=== PATIENT | male | born 1975 | race Caucasian/White ===

== ENCOUNTER → 2016-10-20 | Outpatient (REF) | payer OTHER ==
[2016-10-20 17:50] LABS: MEAN CORPUSCULAR HEMOGLOBIN 32.4 pg (27.0-33.0); MEAN CORPUSCULAR HGB CONC 33.6 g/dl (32.0-36.5); MEAN CORPUSCULAR VOLUME 96.3 fl (80.0-96.0); RED CELL DISTRIBUTION WIDTH 12.9 % (11.5-14.5); WHITE BLOOD COUNT 4.2 K/mm3 (4.0-10.0)
[2016-10-20 18:26] LABS: ALKALINE PHOSPHATASE 44 U/L (45-117); ALT/SGPT 47 U/L (12-78); ANION GAP 5 MEQ/L (8-16); AST/SGOT 24 U/L (15-37); BILIRUBIN,TOTAL 0.5 MG/DL (0.2-1.0); BLOOD UREA NITROGEN 29 MG/DL (7-18); CALCIUM LEVEL 9.3 MG/DL (8.5-10.1); CARBON DIOXIDE LEVEL 27 MEQ/L (21-32); CHLORIDE LEVEL 106 MEQ/L (98-107); CREATININE FOR GFR 1.26 MG/DL (0.70-1.30); GLOMERULAR FILTRATION RATE > 60.0 (>60); GLUCOSE, FASTING 82 MG/DL (70-105); IMMUNOGLOBULIN A 81.4 MG/DL (70-400); POTASSIUM SERUM 4.6 MEQ/L (3.5-5.1); SODIUM LEVEL 138 MEQ/L (136-145); TOTAL PROTEIN 6.5 GM/DL (6.4-8.2)
[2016-10-20 18:28] LABS: VITAMIN B12 LEVEL 654 PG/ML (247-911)
[2016-10-25 00:08] LABS: ANTI-SACCHAROMYCES CEREV. IgA <20.0 Units (0.0-24.9); ANTI-SACCHAROMYCES CEREV. IgG <20.0 Units (0.0-24.9); ENDOMYSIAL ABY IgA Negative (Negative); TISSUE TRANSGLUTAMINASE IgG 2 U/mL (0-5)
== END ==
LOC: M LABDRAW1 15:47
PROVIDERS: ATTEND Internal Medicine Gastroenterology
DX: R10.84 Generalized abdominal pain (principal); K58.9 Irritable bowel syndrome, unspecified; K59.00 Constipation, unspecified

== ENCOUNTER 2020-11-05 15:00 | Emergency (ER) | payer OTHER ==
[~2020-11-05] VITALS: Ht 182.9 cm; Wt 86.4 kg
[2020-11-05] MEDS ORDERED: ACETAMINOPHEN 325 MG TAB PO ONE (19:05)
[2020-11-05] MEDS ORDERED: traMADol 50 MG TAB PO ONE (19:05)
--- NOTE | 2020-11-05 20:04 | REP ---
INDICATION: right sciatica, injury. COMPARISON: None. TECHNIQUE: AP, lateral, bilateral oblique and coned L5-S1 views of the lumbar spine were obtained. FINDINGS: There is maintenance of the normal lumbar lordosis. There is degenerative disc disease, L4-5 with narrowing of the intervertebral disc space, marginal osteophytes and endplate sclerosis. There are no compression fractures. There is no spondylolisthesis. The SI joints are normal. The paravertebral soft tissues are normal. IMPRESSION: Degenerative disc disease, L4-5 as described. No evidence of acute injury. <Electronically signed by Juancarlos Garcia > 11/05/201999
[2020-11-05] MEDS ORDERED: MEDR4PAK PO (20:16)
[2020-11-05] MEDS ORDERED: TRAM50TA2 PO (20:22)
[2020-11-05 21:29] VITALS: BP 141/67
[2020-11-06] MEDS ORDERED: UNRESOLVED CLARIFICATION ENTRY XX SCH (00:01)
== END 2020-11-05 21:30 | disposition home or self-care (01) ==
LOC: M ED 15:00
DX: M54.41 Lumbago with sciatica, right side (principal); M51.37 Other intervertebral disc degeneration, lumbosacral region; Z91.013 Allergy to seafood

== ENCOUNTER 2023-10-17 12:23 | Emergency (ER) | payer OTHER ==
[~2023-10-17] VITALS: Ht 182.9 cm; Wt 87.3 kg
[~2023-10-17 12:23] MED LIST: MEDR4PAK PO; TRAM50TA2 PO
[2023-10-17 12:26] VITALS: TEMP 98.8
[2023-10-17 14:04] LABS: BASO % 0.3 % (0.0-1.0); EOS % 0.3 % (0.0-3.0); HEMATOCRIT 42.5 % (42.0-52.0); HEMOGLOBIN 14.4 g/dl (13.5-17.5); LYMPH % 8.6 % (24.0-44.0); MEAN CORPUSCULAR HEMOGLOBIN 32.5 pg (27.0-33.0); MEAN CORPUSCULAR HGB CONC 33.9 g/dl (32.0-36.5); MEAN CORPUSCULAR VOLUME 95.9 fl (80.0-96.0); MONO # 1.1 10^3/uL (0.0-0.8); MONO % 9.2 % (2.0-8.0); NEUTROPHILS # 9.6 10^3/uL (1.5-8.5); NEUTROPHILS % 81.2 % (36.0-66.0); PLATELET COUNT, AUTOMATED 234 10^3/uL (150-450); RED BLOOD COUNT 4.43 10^6/uL (4.30-6.10); WHITE BLOOD COUNT 11.8 10^3/uL (4.0-10.0)
[2023-10-17 14:22] LABS: ALBUMIN 4.2 G/DL (3.2-5.2); BILIRUBIN,DIRECT 0.3 MG/DL (<0.4); TOTAL PROTEIN 6.8 G/DL (5.7-8.2)
[2023-10-17] MEDS: NS 1,000 ML IV ONE (14:38)
[2023-10-17] MEDS ORDERED: ISOVUE-370 76% 100ML VIAL As Ordered ONE (14:39)
[2023-10-17] MEDS: KETOROLAC 30 MG/ML 1ML VIAL IV ONE (15:07)
[2023-10-17] MEDS: METOCLOPRAMIDE INJ 10MG/2ML VIAL IV ONE (15:07)
[2023-10-17] MEDS: ONDANSETRON 4MG 2ML VIAL IV ONE (15:07)
[2023-10-17] MEDS ORDERED: AMOX875T2 PO (15:38)
[2023-10-17] MEDS ORDERED: ONDA-282 PO (15:38)
[2023-10-17] MEDS ORDERED: REGL10TA6 PO (15:53)
[2023-10-17] MEDS ORDERED: KETO10TAB PO (15:53)
[2023-10-17] MEDS: AUGMENTIN 875 MG TAB PO ONE (15:54)
[2023-10-17 16:06] VITALS: BP 112/68; O2SAT 99
== END 2023-10-17 16:08 | disposition home or self-care (01) ==
LOC: M ED 12:23
DX: R10.9 Unspecified abdominal pain (principal); R11.2 Nausea with vomiting, unspecified; Z87.19 Personal history of other diseases of the digestive system; Z79.899 Other long term (current) drug therapy; Z91.013 Allergy to seafood
CPT/HCPCS: 74177; 80047; 80076; 81002; 83690; 85025; 96361; 96374; 96375; 99284; J1885; J2405; J2765; Q9967

== ENCOUNTER 2024-04-11 19:36 | Emergency (ER) | payer OTHER ==
[~2024-04-11] VITALS: Ht 182.9 cm; Wt 90.0 kg
[~2024-04-11 19:36] MED LIST changes: +AMOX875T2 PO; +KETO10TAB PO; +ONDA-282 PO; +REGL10TA6 PO
[2024-04-11 19:46] VITALS: TEMP 97.5
[2024-04-11 20:57] LABS: KETONE, URINE AUTO RFX 1+ mg/dL (NEGATIVE); LEUKOCYTE ESTERASE UR AUTO RFX NEGATIVE (NEGATIVE); MUCUS, URINE RFX SMALL (NEGATIVE); NITRITE, URINE AUTO RFX NEGATIVE (NEGATIVE); RBC, URINE AUTO RFX 3 /HPF (0-3); SQUAM EPITHELIAL CELL UR AURFX 0 /HPF (0-6)
[2024-04-11 21:02] LABS: BASO % 0.3 % (0.0-1.0); EOS % 0.1 % (0.0-3.0); HEMATOCRIT 43.9 % (42.0-52.0); HEMOGLOBIN 15.3 g/dl (13.5-17.5); LYMPH # 1.2 10^3/uL (1.5-5.0); LYMPH % 7.5 % (24.0-44.0); MEAN CORPUSCULAR HGB CONC 34.9 g/dl (32.0-36.5); MEAN CORPUSCULAR VOLUME 91.8 fl (80.0-96.0); MONO # 1.3 10^3/uL (0.0-0.8); MONO % 8.3 % (2.0-8.0); NEUTROPHILS # 13.3 10^3/uL (1.5-8.5); NEUTROPHILS % 83.4 % (36.0-66.0); PLATELET COUNT, AUTOMATED 287 10^3/uL (150-450); RED BLOOD COUNT 4.78 10^6/uL (4.30-6.10)
[2024-04-11 21:21] LABS: LIPASE 45 U/L (12-53)
[2024-04-11 21:23] LABS: ALBUMIN 4.5 G/DL (3.2-5.2); ALKALINE PHOSPHATASE 43 U/L (40-129); ALT/SGPT 39 U/L (7.0-40); AST/SGOT 20 U/L (<34); BILIRUBIN,DIRECT 0.3 MG/DL (<0.4); BILIRUBIN,TOTAL 1.1 MG/DL (0.3-1.2); BLOOD UREA NITROGEN 18 MG/DL (9-23); CALCIUM LEVEL 10.7 MG/DL (8.5-10.1); CARBON DIOXIDE LEVEL 23 MMOL/L (20-31); CHLORIDE LEVEL 106 MMOL/L (98-107); CREATININE FOR GFR 0.99 MG/DL (0.70-1.30); GLOMERULAR FILTRATION RATE > 60.0 (>60); GLUCOSE, FASTING 121 MG/DL (60-100); POTASSIUM SERUM 4.2 MMOL/L (3.5-5.1); SODIUM LEVEL 140 MMOL/L (136-145); TOTAL PROTEIN 7.3 G/DL (5.7-8.2)
[2024-04-11] MEDS ORDERED: ISOVUE-370 76% 100ML VIAL As Ordered ONE (21:38)
[2024-04-11] MEDS: NS (Normal Saline) 0.9% 1,000 ML IV ONE (23:25)
[2024-04-11] MEDS: ONDANSETRON 4MG 2ML VIAL IV PRN (23:29)
[2024-04-11] MEDS: DICYCLOMINE INJ 20MG/2ML IM ONE (23:31)
[2024-04-11 23:32] LABS: AMPHETAMINES LEVEL URINE NEGATIVE (NEGATIVE); BARBITURATES URINE NEGATIVE (NEGATIVE); BENZODIAZEPINES URINE NEGATIVE (NEGATIVE); CANNABINOIDS URINE NEGATIVE (NEGATIVE); COCAINE METABOLITE URINE NEGATIVE (NEGATIVE); METHADONE URINE NEGATIVE (NEGATIVE); OPIATES URINE NEGATIVE (NEGATIVE); PHENCYCLIDINE URINE NEGATIVE (NEGATIVE)
[2024-04-11] MEDS: KETOROLAC 30 MG/ML 1ML VIAL IV ONE (23:35)
[2024-04-12] MEDS ORDERED: KETO10TAB PO (00:05)
[2024-04-12] MEDS ORDERED: ONDA-282 PO (00:05)
[2024-04-12] MEDS ORDERED: DICY20TA20 PO (00:05)
[2024-04-12 01:15] VITALS: BP 129/67; O2SAT 97
== END 2024-04-12 01:17 | disposition home or self-care (01) ==
LOC: M ED 19:36 → EDBD 19:36 → M ED 04-12 01:17
DX: R10.9 Unspecified abdominal pain (principal); Z79.899 Other long term (current) drug therapy; Z91.013 Allergy to seafood
CPT/HCPCS: 74177; 80048; 80076; 80307; 81001; 83690; 85025; 96372; 96374; 96375; 99284; J0500; J1885; J2405; Q9967

== ENCOUNTER → 2024-05-26 | Outpatient (REF) | payer OTHER ==
[~2024-05-26] MED LIST changes: +DICY20TA20 PO
[2024-05-26 17:14] LABS: FERRITIN 78.8 NG/ML (10.5-307.3)
== END ==
LOC: M LAB REF 16:02
PROVIDERS: ATTEND Internal Medicine
DX: R53.83 Other fatigue (principal)

== ENCOUNTER → 2025-02-09 | Outpatient (REF) | payer OTHER | LOC: M LAB REF 12:57 | PROVIDERS: ATTEND Internal Medicine | DX: R51.9 Headache, unspecified (principal); R53.83 Other fatigue ==